=== PATIENT | male | born 1985 | race African-American/Black ===

== ENCOUNTER 2017-02-26 03:05 | Emergency (ER) | payer SELFPAY ==
[2017-02-26 03:12] VITALS: BP 150/75; PULSE 99; RESP 20; TEMP 97
--- NOTE | 2017-02-26 03:43 | ED ---
Alcohol HPI - General Chief Complaint: Alcohol Stated Complaint: ETOH, Nursing Home Clearance Time Seen by Provider: 02/26/17 03:41 Source: patient, family Mode of arrival: ambulatory Limitations: no limitations - History of Present Illness Initial Comments: Patient presents with acute alcohol intoxication. He denies any injuries. He denies loss of conscious. He has no weakness. He has no chest pain. He has no headache. He has no neck pain or stiffness. He has no lightheadedness or dizziness. He admits to drinking this evening. - Related Data Home Medications Medication Instructions Recorded Confirmed No Known Home Medications [No 02/26/17 02/26/17 Known Home Medications] Allergies Allergy/AdvReac Type Severity Reaction Status Date / Time No Known Allergies Allergy Verified 02/26/17 03:13 Review of Systems ROS Statement: Those systems with pertinent positive or pertinent negative responses have been documented in the HPI. ROS Other: All systems not noted in ROS Statement are negative. Past Medical History Past Medical History: No Reported History History of Any Multi-Drug Resistant Organisms: None Reported Past Surgical History: No Surgical Hx Reported Past Psychological History: No Psychological Hx Reported Smoking Status: Current every day smoker Past Alcohol Use History: Occasional Past Drug Use History: None Reported General Exam Limitations: no limitations General appearance: alert, in no apparent distress Head exam: Present: atraumatic, normocephalic, normal inspection Eye exam: Present: normal appearance, PERRL, EOMI. Absent: scleral icterus, conjunctival injection, periorbital swelling ENT exam: Present: normal exam, mucous membranes moist Neck exam: Present: normal inspection. Absent: tenderness, meningismus, lymphadenopathy Respiratory exam: Present: normal lung sounds bilaterally. Absent: respiratory distress, wheezes, rales, rhonchi, stridor Cardiovascular Exam: Present: regular rate, normal rhythm, normal heart sounds. Absent: systolic murmur, diastolic murmur, rubs, gallop, clicks GI/Abdominal exam: Present: soft, normal bowel sounds. Absent: distended, tenderness, guarding, rebound, rigid Extremities exam: Present: normal inspection, full ROM, normal capillary refill. Absent: tenderness, pedal edema, joint swelling, calf tenderness Back exam: Present: normal inspection Neurological exam: Present: alert, oriented X3, CN II-XII intact Psychiatric exam: Present: normal affect, normal mood Skin exam: Present: warm, dry, intact, normal color. Absent: rash Course Vital Signs 02/26/17 03:08 Temperature 97 F L Pulse Rate 99 Respiratory 20 Rate Blood Pressure 150/75 O2 Sat by Pulse 95 Oximetry Medical Decision Making - Medical Decision Making Patient presents for acute alcohol intoxication. His examination is unremarkable. There is no evidence of injury. He is alert and oriented 3. He denies any proms or complaints. He is stable for discharge in the care of police. Disposition Clinical Impression: Alcoholic intoxication Disposition: HOME SELF-CARE Condition: Good Instructions: Alcohol Intoxication (ED) Referrals: None,Stated [Primary Care Provider] - 1-2 days Time of Disposition: 03:43
== END 2017-02-26 04:55 | disposition home or self-care (01) ==
LOC: EC 03:05
DX: F10.129 Alcohol abuse with intoxication, unspecified (principal); Z02.89 Encounter for other administrative examinations; F17.200 Nicotine dependence, unspecified, uncomplicated
CPT/HCPCS: 99282

== ENCOUNTER → 2020-04-23 | Outpatient (CLI) | payer SELFPAY | END | disposition home or self-care (01) | LOC: LABWHC1 13:32 | PROVIDERS: ATTEND Emergency Medicine | DX: Z20.828 Contact with and (suspected) exposure to other viral communicable diseases (principal) | CPT/HCPCS: U0003; C9803 ==

== ENCOUNTER → 2021-01-04 | Outpatient (CLI) | payer SELFPAY | END | disposition home or self-care (01) | LOC: LABWHC1 16:33 | PROVIDERS: ATTEND Emergency Medicine | DX: Z20.822 Contact with and (suspected) exposure to COVID-19 (principal) | CPT/HCPCS: U0003; C9803; U0005 ==

== ENCOUNTER → 2023-07-21 | Outpatient (CLI) | payer OTHER ==
--- NOTE | 2023-07-21 09:23 | CT ---
EXAMINATION TYPE: CT shoulder RT wo con DATE OF EXAM: 07/21/2023 COMPARISON: None HISTORY: Rotator cuff tear CT DLP: 402.[address] of the right shoulder with reconstruction imaging. TECHNIQUE: Unenhanced CT of the right shoulder was performed with bone and soft tissue window setting s submitted in the axial coronal and sagittal planes. At a separate workstation [id number] TR imaging was o btained. FINDINGS: Small subacromial spur noted which could result in borderline to mild impingement. Mild AC joint arth ropathy. Glenohumeral joint space narrowing with subchondral cyst formation noted of the bony glenoid . Spur formation of the humeral head. Tiny ossific fragments seen along the inferior margin of the [place] glenoid could reflect small avulsion fracture of uncertain age. No obvious rotator cuff abnormalit y seen on CT. MRI is much more sensitive and specific to rotator cuff pathology. No soft tissue mas ses appreciated. Visualized portions of the right lung demonstrate right apical scarring. IMPRESSION: 1. Glenohumeral degenerative change as discussed. 2. Bony fragmentation inferior glenoid could reflect avulsion fracture of uncertain age. 2. Small subacromial spur.
== END | disposition home or self-care (01) ==
LOC: RADCTMAIN 07:41
PROVIDERS: ATTEND Orthopaedic Surgery
DX: M19.011 Primary osteoarthritis, right shoulder (principal); M21.829 Other specified acquired deformities of unspecified upper arm; M75.101 Unspecified rotator cuff tear or rupture of right shoulder, not specified as traumatic; M25.711 Osteophyte, right shoulder